=== PATIENT | female | born 1950 ===

== ENCOUNTER 2017-12-09 07:06 | Day surgery (SDC) | payer MEDICARE, OTHER ==
[~2017-12-09] VITALS: Ht 144.8 cm; Wt 83.9 kg
[~2017-12-09 07:06] MED LIST: AZATHIOPRINE50 MG PO; BACTRIM DS TAB1 EACH PO; BUMETANIDE2 MG PO; CARVEDILOL25 MG PO; CATAPRES0.1 MG PO; FLOVENT DISKU100 MCG INH; MAGNESIUM OXID400 MG PO; MIRAPEX0.25 MG PO; NYSTATIN1 EAC1 PO; POTASSIUM CHLO10 MEQ PO; PROLIA60 MG/1 ML SUB-Q; PROTONIX40 MG PO; PROVENTIL HFA6.7 GM INH; PROZAC20 MG PO; VITAMIN B122500 MCG PO; VITAMIN D32000 UNI1 PO
== END 2017-12-09 08:54 | disposition home or self-care (01) ==
LOC: OPS 07:06 → DS 07:06 → OPS 08:15 → DS 08:15 → OPS 08:54
PROVIDERS: Ophthalmology
PROC: 08RK3JZ Replacement of Left Lens with Synthetic Substitute, Percutaneous Approach (ICD-10-PCS; principal; 2017-12-09 08:15)
DX: H25.813 Combined forms of age-related cataract, bilateral (principal); M19.90 Unspecified osteoarthritis, unspecified site; G47.30 Sleep apnea, unspecified; I10 Essential (primary) hypertension; K59.00 Constipation, unspecified; Z99.2 Dependence on renal dialysis; Z79.51 Long term (current) use of inhaled steroids; Z88.8 Allergy status to other drugs, medicaments and biological substances; Z79.899 Other long term (current) drug therapy; J45.909 Unspecified asthma, uncomplicated; Z99.89 Dependence on other enabling machines and devices
CPT/HCPCS: J2250